=== PATIENT | male | born 1930 | race Caucasian/White ===

== ENCOUNTER 2017-05-05 07:11 | Inpatient (IN) | payer MEDICARE, OTHER ==
[~2017-05-05] VITALS: Ht 172.7 cm; Wt 77.4 kg
[~2017-05-05 07:11] MED LIST: AMLO5TAB2 PO; Doxycycline Monohydrate PO; MEMA10TA PO; PRAV20TA3 PO; RIVA6CAP2 PO
[2017-05-05] MEDS ORDERED: SODIUM CHLORIDE 0.9% 1,000 ML IVB ONE (08:54)
[2017-05-05 09:35] LABS: Basophils # (auto) 0.1 uL; Eosinophils # (auto) 0.2 uL; Eosinophils % (auto) 1.9 % (0.0-7.0); Hematocrit 46.9 % (41.0-53.0); Hemoglobin 15.8 g/dL (13.5-17.5); Lymphocytes # (auto) 1.8 uL; Lymphocytes % (auto) 14.6 % (10.0-50.0); Mean Corpuscular Hemoglobin 29.4 pg (28.0-32.0); Mean Corpuscular Hgb Conc. 33.6 g/dL (32.0-36.0); Mean Corpuscular Volume 87.5 fL (80.0-100.0); Monocytes % (auto) 8.3 % (0.0-12.0); Neutrophils # (auto) 8.9 uL; Neutrophils % (auto) 74.2 % (37.0-80.0); Platelet Count (auto) 260 10^3/uL (140-450); Red Blood Cells 5.36 10^6/uL (4.5-5.90); Red Cell Distribution Width 13.7 % (11.8-14.3)
[2017-05-05 09:47] LABS: Albumin 3.9 g/dL (3.4-5.0); BUN/Creatinine Ratio 15.3; Calcium 9.3 mg/dL (8.5-10.1); Magnesium 2.3 mg/dL (1.6-2.6); Potassium 3.8 mmol/L (3.5-5.1)
[2017-05-05 09:50] LABS: Bilirubin, Total 0.9 mg/dL (0.2-1.0); Total Protein 7.6 g/dL (6.4-8.2)
[2017-05-05 11:21] LABS: Alcohol, Urine < 3.0 mg/dL (0-5); Amphetamine Screen, Urine NEGATIVE (NEGATIVE); Barbiturate Scree,Urine NEGATIVE (NEGATIVE); Benzodiazephine Screen, Urine NEGATIVE (NEGATIVE); Cannabinoid Screen, Urine NEGATIVE (NEGATIVE); Cocaine Screen, Urine NEGATIVE (NEGATIVE); Opiate Scree,Urine NEGATIVE (NEGATIVE); Phencyclidine Screen, Urine NEGATIVE (NEGATIVE)
[2017-05-05 11:30] LABS: Urine Bacteria NONE SEEN /hpf (None Seen); Urine Blood TRACE /uL (Negative); Urine Mucus FEW (None Seen); Urine Specific Gravity 1.025 (1.001-1.035); Urine WBC 2 /hpf (0 - 3)
[2017-05-05 12:04] LABS: INR 1.01 (0.9-1.15)
[2017-05-05] MEDS: SODIUM CHLORIDE 0.9% 1,000 ML IV SCH (14:01)
[2017-05-05] MEDS ORDERED: HYDROcodone-ACET 5/325MG TAB PO PRN (14:15)
[2017-05-05] MEDS ORDERED: cefTRIAXone 1GM/10ml IVPUSH 10 ML IV ONE (14:15)
[2017-05-05] MEDS ORDERED: MORPHINE SULFATE 4 MG/ML SYR/VIAL IV PRN ×2 (14:15)
[2017-05-05] MEDS ORDERED: NITROGLYCERIN 0.4 MG SL TAB SL PRN (14:15)
[2017-05-05] MEDS ORDERED: LORazepam 0.5 MG TAB PO PRN (14:15)
[2017-05-05] MEDS ORDERED: TEMAZEPAM 15 MG CAP PO PRN (14:15)
[2017-05-05] MEDS ORDERED: LACTULOSE 20Gm/30ML SOLN PO PRN (14:15)
[2017-05-05] MEDS ORDERED: PROMETHAZINE HCL 25 MG/ML 1ML IV PRN (14:15)
[2017-05-05] MEDS ORDERED: ACETAMINOPHEN 500 MG TAB PO PRN (14:15)
[2017-05-05] MEDS ORDERED: LABETALOL HCL 5 MG/ML ML 20ML VIAL IV PRN (14:15)
[2017-05-05] MEDS: ASPirin 81 mg TAB PO SCH (14:30)
[2017-05-05] MEDS: ENOXAPARIN SOD 40 MG/0.4 ML SYRINGE SC SCH (14:30)
[2017-05-05 17:20] VITALS: BP 147/73
[2017-05-05] MEDS: RIVASTIGMINE 6 MG PO SCH (18:00)
[2017-05-05] MEDS: MEMANTINE HCL 5 MG TAB PO SCH (21:05)
[2017-05-05 21:34] VITALS: BP 137/73
[2017-05-06] MEDS: SODIUM CHLORIDE 0.9% 1,000 ML IV SCH ×2 (02:34→15:23)
[2017-05-06 05:07] VITALS: BP 119/58
[2017-05-06 06:40] LABS: Basophils # (auto) 0.2 uL; Basophils % (auto) 1.5 % (0.0-2.0); Eosinophils # (auto) 0.4 uL; Eosinophils % (auto) 3.7 % (0.0-7.0); Hematocrit 41.1 % (41.0-53.0); Lymphocytes # (auto) 1.6 uL; Lymphocytes % (auto) 13.4 % (10.0-50.0); Mean Corpuscular Hemoglobin 29.7 pg (28.0-32.0); Mean Corpuscular Volume 87.4 fL (80.0-100.0); Monocytes % (auto) 8.8 % (0.0-12.0); Neutrophils # (auto) 8.5 uL; Neutrophils % (auto) 72.6 % (37.0-80.0); Platelet Count (auto) 254 10^3/uL (140-450); Red Blood Cells 4.71 10^6/uL (4.5-5.90); Red Cell Distribution Width 13.1 % (11.8-14.3); White Blood Cell 11.7 10^3/uL (4.4-10.8)
[2017-05-06 07:09] LABS: Albumin 3.2 g/dL (3.4-5.0); BUN/Creatinine Ratio 13.2; Bilirubin, Total 0.9 mg/dL (0.2-1.0); Calcium 8.3 mg/dL (8.5-10.1); Potassium 4.1 mmol/L (3.5-5.1); Total Protein 6.5 g/dL (6.4-8.2)
[2017-05-06] MEDS: RIVASTIGMINE 6 MG PO SCH (08:00)
[2017-05-06 09:00] VITALS: BP 120/49
[2017-05-06] MEDS ORDERED: cefTRIAXone 1GM/10ml IVPUSH 10 ML IV SCH (09:00)
[2017-05-06] MEDS ORDERED: LATA0.0015 EACHEYE (09:08)
[2017-05-06] MEDS ORDERED: DONE10TA40 PO (09:08)
[2017-05-06] MEDS ORDERED: PRAV20TA3 PO (09:08)
[2017-05-06] MEDS ORDERED: CAR3125T OR (09:08)
[2017-05-06] MEDS: PANTOPRAZOLE 40 MG TAB PO SCH (09:37)
[2017-05-06] MEDS: MEMANTINE HCL 5 MG TAB PO SCH ×2 (09:37→22:00)
[2017-05-06] MEDS: ASPirin 81 mg TAB PO SCH (09:38)
[2017-05-06] MEDS: ENOXAPARIN SOD 40 MG/0.4 ML SYRINGE SC SCH (09:38)
[2017-05-06 13:00] VITALS: BP 139/66
[2017-05-06] MEDS ORDERED: HALOPERIDOL 5 MG TAB PO PRN (15:00)
[2017-05-06 17:07] VITALS: BP 123/69
[2017-05-06 22:00] VITALS: BP 126/75
[2017-05-06] MEDS: QUEtiapine FUMARATE 25 MG TAB PO SCH (22:00)
[2017-05-07 05:05] VITALS: BP 136/74
[2017-05-07] MEDS: SODIUM CHLORIDE 0.9% 1,000 ML IV SCH ×2 (05:31→14:19)
[2017-05-07 09:00] VITALS: BP 164/79
[2017-05-07 09:59] LABS: Folate (Folic Acid) 21.76 ng/mL (5.38-24)
[2017-05-07] MEDS: MEMANTINE HCL 5 MG TAB PO SCH ×3 (10:00→22:00)
[2017-05-07] MEDS: ASPirin 81 mg TAB PO SCH ×2 (10:00→10:24)
[2017-05-07] MEDS: PANTOPRAZOLE 40 MG TAB PO SCH (10:24)
[2017-05-07] MEDS: ENOXAPARIN SOD 40 MG/0.4 ML SYRINGE SC SCH (10:24)
[2017-05-07 12:59] VITALS: BP 131/70
[2017-05-07 16:57] VITALS: BP 135/90
[2017-05-07] MEDS ORDERED: HALOPERIDOL LACTATE 5 MG/ML INJ VIAL IM PRN (19:30)
[2017-05-07] MEDS: QUEtiapine FUMARATE 25 MG TAB PO SCH (22:00)
[2017-05-07 22:18] VITALS: BP 113/66
[2017-05-08] MEDS: SODIUM CHLORIDE 0.9% 1,000 ML IV SCH (03:38)
[2017-05-08 05:04] VITALS: BP 112/59
[2017-05-08 08:31] VITALS: BP 140/63
[2017-05-08] MEDS: ASPirin 81 mg TAB PO SCH (10:42)
[2017-05-08] MEDS: MEMANTINE HCL 5 MG TAB PO SCH (10:42)
[2017-05-08] MEDS: PANTOPRAZOLE 40 MG TAB PO SCH (10:42)
[2017-05-08] MEDS: ENOXAPARIN SOD 40 MG/0.4 ML SYRINGE SC SCH (10:43)
[2017-05-08 13:00] VITALS: BP 129/78
== END 2017-05-08 13:00 | DRG 682 ==
LOC: ER 07:11 → EDUNIT# 07:11 → TELE 07:12 → TELE-WESTW 17:02 → WEST WING 05-06 16:51
PROVIDERS: ADMIT Internal Medicine; ATTEND Internal Medicine
DX: N17.0 Acute kidney failure with tubular necrosis (principal); G93.41 Metabolic encephalopathy; E86.0 Dehydration; G30.1 Alzheimer's disease with late onset; E44.1 Mild protein-calorie malnutrition; F02.80 Dementia in other diseases classified elsewhere, unspecified severity, without behavioral disturbance, psychotic disturbance, mood disturbance, and anxiety; E78.5 Hyperlipidemia, unspecified; H40.9 Unspecified glaucoma; I10 Essential (primary) hypertension; I25.10 Atherosclerotic heart disease of native coronary artery without angina pectoris; I73.9 Peripheral vascular disease, unspecified; Z51.5 Encounter for palliative care; G89.29 Other chronic pain; M54.9 Dorsalgia, unspecified; Z66 Do not resuscitate; Z85.46 Personal history of malignant neoplasm of prostate; Z86.73 Personal history of transient ischemic attack (TIA), and cerebral infarction without residual deficits; Z95.0 Presence of cardiac pacemaker; Z68.25 Body mass index [BMI] 25.0-25.9, adult
CPT/HCPCS: 36415; 51702; 70450; 71045; 80053; 80307; 81001; 82550; 82607; 82746; 82962; 83605; 83735; 83880; 84154; 84443; 84484; 85025; 85305; 85306; 85610; 85730; 87040; 87081; 87086; 93005; 94761; 95819; 96361; 96374